=== PATIENT | female | born 1965 | race Asian ===

== ENCOUNTER 2017-01-02 06:30 | Day surgery (SDC) | payer OTHER ==
[~2017-01-02 06:30] MED LIST: CEFAZOLIN 2 GM/D5W RTU 2 GM/50 ML RTUPB IV PRN; LACTATED RINGERS 1000 ML IV PRN; LIDOCAINE 0.5% INJ-PF (5 MG/ML) 50 ML SDV SUBCUT PRN
[2017-01-02] MEDS ORDERED: SCOPOLAMINE HYDROBROMIDE 1.5 MG PATCH.TD72 ONE (07:17)
[2017-01-02] MEDS ORDERED: ALBUTEROL SULFATE 0.083% NEB 2.5 MG/3 ML AMPUL NEB ONE ×2 (07:20→08:00)
[2017-01-02] MEDS ORDERED: MIDAZOLAM 2 MG/2 ML INJ ONE ×2 (07:37→07:47)
[2017-01-02 07:46] LABS: PARTIAL THROMBOPLASTIN TIME 32.9 SEC (23.5-35.8)
[2017-01-02] MEDS ORDERED: FENTANYL CITRATE INJ/PF 100 MCG/2 ML AMPUL ONE ×2 (07:46→09:05)
[2017-01-02] MEDS ORDERED: ACETAMINOPHEN 100 ML IV ONE (07:47)
[2017-01-02] MEDS ORDERED: ONDANSETRON HCL INJ/PF 4 MG/2 ML SDV ONE (07:47)
[2017-01-02] MEDS ORDERED: PROPOFOL INJ 200 MG/20 ML VIAL IV ONE (07:47)
[2017-01-02] MEDS ORDERED: SCOPOLAMINE HYDROBROMIDE 1.5 MG PATCH.TD72 TD ONE (08:00)
[2017-01-02] MEDS ORDERED: BUPIVACAINE HCL 0.25 % INJ/PF (2.5 MG/1 ML) 30 ML VIAL ONE (08:23)
[2017-01-02] MEDS ORDERED: MORPHINE SULFATE 10 MG/ML INJ IV PRN (08:57)
[2017-01-02] MEDS ORDERED: MEPERIDINE HCL/PF INJ 25 MG/1 ML DISP.SYRIN IV PRN (08:57)
[2017-01-02] MEDS ORDERED: FENTANYL CITRATE INJ/PF 100 MCG/2 ML AMPUL IV PRN ×3 (08:57)
[2017-01-02] MEDS ORDERED: DIPHENHYDRAMINE HCL 50 MG/ML VIAL IV PRN (08:57)
[2017-01-02] MEDS ORDERED: RINGERS SOLUTION,LACTATED 1,000 ML IV PRN (10:02)
--- NOTE | 2017-01-02 10:15 | Operative Report ---
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 Nonsterile tourniquet applied to the right proximal thigh. Right lower extremity prepped and draped in a sterile field. Standard inflow arthroscopic portal established and the arthroscope introduced to the suprapatellar pouch. Serial evaluation of the knee revealed grade II to III chondromalacia involving the patella central christae today and proximal pole. Medial and lateral gutters free of any loose bodies or meniscal fragments. Arthroscopic portal established inferomedially. Medial compartment revealed a complex horizontal cleavage and radial tear involving the meniscal root and posterior horn of the medial meniscus. There are multiple chondral loose bodies that were free- floating in the anterior compartment medial and lateral compartments as well. Utilizing a standard speed shaver multiple cartilaginous bodies removed from the multiple compartments each with measuring greater than 1 cm. Utilizing duckbill meniscal biters and standard shaver partial meniscectomy was performed back to stable rim. Post meniscectomy left approximately 60% posterior horn medial meniscal remnant. No high-grade chondral defects identified in the medial compartment. Notch revealed intact anterior and posterior cruciate ligaments. Lateral compartment revealed a degenerative midsubstance and anterior horn lateral meniscus tear. Utilizing a 4 5 standard shaver partial meniscectomy was performed back to stable rim leaving approximate 70% meniscal remnant laterally. Utilizing standard standard speed shaver chondroplasty was performed a grade II to III chondromalacia involving the patella. The arthroscopic camera was removed from the intra-articular space and injected with plain ropivacaine as well as the arthroscopic portals were closed utilizing 3-0 nylon suture. Wounds were dressed with Xeroform orthopedic sponges ABDs and paper tape. Patient tolerated procedure well and taken to the recovery room in stable condition
--- NOTE | 2017-01-02 10:22 | PDOC DISCHARGE SUMMARY ---
Discharge Summary (SDC) - Discharge Final Diagnosis: Post partial medial and lateral meniscectomies right knee Date of Surgery: 01/02/17 Discharge Date: 01/02/17 Condition: Stable Prescriptions: Oxycodone HCl/Acetaminophen [Percocet 5-325 mg Tablet] 1 - 2 tab PO ASDIR PRN # 25 tablet PRN Reason: Referrals: MICHELE CORDERO MD [Primary Care Provider] - SHEREE CORONA MD [ASSOCIATE] - (followup 5-7 days) Discharge Diet: Regular Discharge Activity: Activity As Tolerated Report the Following to Your Physician Immediately: Drainage-Foul Smelling, Numbness
[2017-01-02] MEDS: FENTANYL CITRATE INJ/PF 100 MCG/2 ML AMPUL ONE ×2 (10:27→10:32)
[2017-01-02] MEDS: HYDROMORPHONE HCL INJ/PF 2 MG/ML AMPULE ONE ×2 (10:48→10:58)
[2017-01-02] MEDS ORDERED: METOCLOPRAMIDE HCL INJ/PF 10 MG/2 ML SDV ONE (10:59)
[2017-01-02] MEDS ORDERED: OXYCODONE-ACETAMINOPHEN 5-325 MG TABLET PO PRN ×2 (11:12)
[2017-01-02 12:39] VITALS: BP 116/78
== END 2017-01-02 12:42 | disposition home or self-care (01) ==
LOC: OROUT 06:30 → EEVIPCON 09:00 → OROUT 12:42
PROVIDERS: ATTEND Orthopaedic Surgery Sports Medicine
PROC: 0SBC4ZZ Excision of Right Knee Joint, Percutaneous Endoscopic Approach (ICD-10-PCS; 2017-01-02)
PROC: 0SBC4ZZ Excision of Right Knee Joint, Percutaneous Endoscopic Approach (ICD-10-PCS; principal; 2017-01-02 08:30)
DX: M23.321 Other meniscus derangements, posterior horn of medial meniscus, right knee (principal); M23.300 Other meniscus derangements, unspecified lateral meniscus, right knee; M25.561 Pain in right knee; M17.11 Unilateral primary osteoarthritis, right knee; I10 Essential (primary) hypertension; Z88.6 Allergy status to analgesic agent
CPT/HCPCS: 36415; 84132; 85610; 85730; 29880; J2250; J3010; J2765; J1170; J2405; J2704; J0690; J0131; 1400

== ENCOUNTER → 2017-12-18 | Outpatient (CLI) | payer OTHER ==
--- NOTE | 2017-12-18 11:14 | RADIOLOGY REPORT (SQ) ---
EXAM DESCRIPTION: L SPINE W/FLEX/EXT COMPLETED DATE/TIME: 12/18/2017 10:27 am REASON FOR STUDY: SPONDYLOLISTHESIS OF LUMBAR REGION (M43.16) M43.16 SPONDYLOLISTHESIS, LUMBAR MONIQUE ON COMPARISON: None. NUMBER OF VIEWS: 6 views TECHNIQUE: AP, bilateral oblique, head lateral views in neutral, flexion, and extension were obtaine d. LIMITATIONS: None. FINDINGS: MINERALIZATION: Normal. SEGMENTATION: Normal. No transitional anatomy. ALIGNMENT: There is grade 1-2 anterolisthesis of L4 on L5. There is grade 1 anterolisthesis of L3 on L4. FLEXION/EXTENSION: There appears to be a slight increase in the anterolisthesis at L4-5 on flexion. VERTEBRAE: Maintained height. No fracture or worrisome bone lesion. DISCS: Disc spaces are narrowed from L3-S1. POSTERIOR ELEMENTS: Pedicles and facets are intact. No pars defect or posterior arch defects. HARDWARE: None in the spine. OTHER: No other significant finding. IMPRESSION: Anterolisthesis of L 3 on L4 and anterolisthesis of L4 on L5. There appears to be some instability at L4-5. TECHNICAL DOCUMENTATION: JOB ID: [id number] [employer]- All Rights Reserved Reading location - IP/workstation name: [email or web address]
== END ==
LOC: RAD 10:09
PROVIDERS: ATTEND Pain Medicine Pain Medicine
DX: M43.16 Spondylolisthesis, lumbar region (principal)
CPT/HCPCS: 72114

== ENCOUNTER → 2020-01-10 | Outpatient (CLI) | payer OTHER ==
--- NOTE | 2020-01-10 13:37 | RADIOLOGY REPORT (SQ) ---
EXAM DESCRIPTION: L SPINE W/FLEX/EXT IMAGES COMPLETED DATE/TIME: 01/10/2020 9:21 am REASON FOR STUDY: (M43.16)SPONDYLOLISTHESIS, LUMBAR REGION M43.16 SPONDYLOLISTHESIS, LUMBAR REGION COMPARISON: None. NUMBER OF VIEWS: 7 views TECHNIQUE: AP and oblique views were obtained. Lateral views were obtained in neutral, flexion, ext ension, and a coned-down lateral view was obtained. LIMITATIONS: None. FINDINGS: MINERALIZATION: Normal. SEGMENTATION: Normal. No transitional anatomy. ALIGNMENT: Minimal scoliosis. Grade 2 anterolisthesis of L4 on L5. FLEXION/EXTENSION: No instability. VERTEBRAE: Maintained height. No fracture or worrisome bone lesion. DISCS: Disc spaces are narrowed from L3-S1. POSTERIOR ELEMENTS: Pedicles and facets are intact. No pars defect or posterior arch defects. HARDWARE: None in the spine. OTHER: No other significant finding. IMPRESSION: Minimal scoliosis. Grade 2 anterolisthesis of L4 on L5. Degenerative disc disease. No instability on flexion/extension. TECHNICAL DOCUMENTATION: JOB ID: [id number] [email or web address]- All Rights Reserved Reading location - IP/workstation name: [email or web address]
== END ==
LOC: RAD 08:56
PROVIDERS: ATTEND Pain Medicine Pain Medicine
DX: M43.16 Spondylolisthesis, lumbar region (principal)
CPT/HCPCS: 72114

== ENCOUNTER → 2020-08-08 | Outpatient (CLI) | payer OTHER ==
[~2020-08-08] MED LIST changes: -CEFAZOLIN 2 GM/D5W RTU 2 GM/50 ML RTUPB IV PRN; +COVID-19 VACCINE (PFIZER)/PF 30 MCG/0.3 ML VIAL IM ONE; +EPINEPHRINE INJ/PF 1 MG/1 ML AMPULE IM PRN; -LACTATED RINGERS 1000 ML IV PRN; -LIDOCAINE 0.5% INJ-PF (5 MG/ML) 50 ML SDV SUBCUT PRN
== END ==
LOC: EMPHEALTH 10:00
PROVIDERS: ATTEND Internal Medicine
DX: Z23 Encounter for immunization (principal)
CPT/HCPCS: 91300